=== PATIENT | female | born 1970 | race Caucasian/White ===

== ENCOUNTER 2016-10-23 09:11 | Emergency (ER) | payer OTHER ==
[~2016-10-23] VITALS: Ht 167.6 cm; Wt 79.0 kg
[2016-10-23 10:40] VITALS: BP 123/70
== END 2016-10-23 11:04 | disposition home or self-care (01) ==
LOC: ED 09:11
DX: L03.311 Cellulitis of abdominal wall (principal); Z88.0 Allergy status to penicillin
CPT/HCPCS: J3490

== ENCOUNTER 2016-10-25 07:35 | Inpatient (IN) | payer OTHER ==
[~2016-10-25] VITALS: Ht 167.6 cm; Wt 82.1 kg
[2016-10-25 08:46] LABS: BASOPHIL % 0.3 % (0-2); PLATELET COUNT 386 x10^3mcL (130-400)
[2016-10-25 09:18] LABS: ALKALINE PHOSPHATASE 78 U/L (46-116); ALT/SGPT 25 U/L (14-59); AST/SGOT 19 U/L (15-37); BILIRUBIN TOTAL 0.21 mg/dL (0.20-1.00); CALCIUM 8.5 mg/dL (8.5-10.1); CARBON DIOXIDE 24.1 mmol/L (21-32); CHLORIDE SERUM 101 mmol/L (98-107); CREATININE SERUM 0.9 mg/dL (0.6-1.0); GFR1 > 60 mL/min; GLUCOSE SERUM 143 mg/dL (74-106); POTASSIUM SERUM 3.3 mmol/L (3.5-5.1); SODIUM SERUM 137 mmol/L (136-145); TOTAL PROTEIN, SERUM 8.2 g/dL (6.4-8.2)
[2016-10-25 09:20] LABS: T3 TOTAL 0.72 ng/mL
[2016-10-25 09:40] LABS: ALBUMIN 2.8 g/dL (3.4-5.0)
[2016-10-25 09:41] LABS: CK-MB 2.1 ng/mL (0-3.6); FREE T4 1.42 ng/dL (0.76-1.46); FREE THYROXINE INDEX 2.7 ug/dL (1.4-4.5); T4(THYROXINE) 7.7 ug/dL (4.7-13.3)
[2016-10-25 10:10] LABS: rbc morphology (normal/abnorm) ABNORMAL (NORMAL)
[2016-10-25] MEDS ORDERED: XANAX0.25 MG PO (10:22)
[2016-10-25 10:31] LABS: ERYTHROCYTE SED RATE 56 mm/hr (0-20)
[2016-10-25 10:46] LABS: MAGNESIUM 2.2 mg/dL (1.8-2.4); PHOSPHOROUS 4.9 mg/dL (2.5-4.9)
[2016-10-25 10:48] LABS: CHOLESTEROL/HDL RATIO 2.9
[2016-10-25 11:39] VITALS: BP 99/71
[2016-10-25 14:20] VITALS: BP 104/66
[2016-10-25 16:15] VITALS: BP 112/70
[2016-10-25 19:24] VITALS: BP 97/60
[2016-10-25 21:36] VITALS: BP 111/72
[2016-10-26] VITALS (7 sets, daily range): BP systolic 98–125; BP diastolic 47–71
[2016-10-26 00:14] LABS: microscopic required? NO
[2016-10-26 00:47] LABS: urine erythrocyte NEGATIVE (NEGATIVE)
[2016-10-26 00:56] LABS: AMPHETAMINE QUAL UR POSITIVE (NEG <=1000)
[2016-10-26 07:19] LABS: BASOPHIL % 0.1 % (0-2); PLATELET COUNT 352 x10^3mcL (130-400)
[2016-10-26 07:21] LABS: RED CELL DISTRIBUTION WIDTH 21.7 % (11.5-14.5)
[2016-10-26 07:32] LABS: CALCIUM 8.2 mg/dL (8.5-10.1); CHLORIDE SERUM 109 mmol/L (98-107); CREATININE SERUM 0.7 mg/dL (0.6-1.0); GFR1 > 60 mL/min; GLUCOSE SERUM 202 mg/dL (74-106); POTASSIUM SERUM 3.4 mmol/L (3.5-5.1); SODIUM SERUM 142 mmol/L (136-145)
[2016-10-26 10:38] LABS: rbc morphology (normal/abnorm) ABNORMAL (NORMAL)
[2016-10-26 12:09] LABS: ovalocyte/elliptocyte 1+; tear drop cell (dacryocyte) 1+
[2016-10-27 07:06] VITALS: BP 117/69
[2016-10-27 10:06] VITALS: BP 124/79
[2016-10-27 14:00] VITALS: BP 105/67
[2016-10-27 21:17] VITALS: BP 121/72
[2016-10-28 05:35] VITALS: BP 122/67
[2016-10-28 07:24] LABS: CALCIUM 8.5 mg/dL (8.5-10.1); CHLORIDE SERUM 107 mmol/L (98-107); CREATININE SERUM 0.6 mg/dL (0.6-1.0); GFR1 > 60 mL/min; GLUCOSE SERUM 105 mg/dL (74-106); POTASSIUM SERUM 3.7 mmol/L (3.5-5.1); SODIUM SERUM 142 mmol/L (136-145)
[2016-10-28 07:25] LABS: PLATELET COUNT 299 x10^3mcL (130-400)
[2016-10-28 07:30] LABS: RED CELL DISTRIBUTION WIDTH 21.1 % (11.5-14.5)
[2016-10-28 09:02] LABS: BAND NEUTROPHIL 2 % (0-10); MONOCYTE 5 % (0-7); SEGMENTED NEUTROPHILS 74 % (37-75); rbc morphology (normal/abnorm) ABNORMAL (NORMAL)
[2016-10-28 09:03] LABS: PLATELET MORPHOLOGY PLT CLUMPS SEEN; ovalocyte/elliptocyte 1+
[2016-10-28 10:06] VITALS: BP 117/64
[2016-10-28 17:49] VITALS: BP 119/75
[2016-10-28 20:28] VITALS: BP 129/83
[2016-10-29 05:19] VITALS: BP 100/69
[2016-10-29 07:05] VITALS: BP 121/86
[2016-10-29 07:18] LABS: BASOPHIL % 0.4 % (0-2)
[2016-10-29 07:19] LABS: PLATELET COUNT 499 x10^3mcL (130-400); RED CELL DISTRIBUTION WIDTH 21.4 % (11.5-14.5)
[2016-10-29 07:24] LABS: rbc morphology (normal/abnorm) ABNORMAL (NORMAL)
[2016-10-29 07:25] LABS: ovalocyte/elliptocyte 1+
[2016-10-29 09:26] LABS: CALCIUM 8.5 mg/dL (8.5-10.1); CARBON DIOXIDE 26.4 mmol/L (21-32); CHLORIDE SERUM 103 mmol/L (98-107); CREATININE SERUM 0.7 mg/dL (0.6-1.0); GFR1 > 60 mL/min; GLUCOSE SERUM 102 mg/dL (74-106); POTASSIUM SERUM 3.6 mmol/L (3.5-5.1); SODIUM SERUM 139 mmol/L (136-145)
[2016-10-29 09:35] VITALS: BP 148/89
[2016-10-29 13:40] VITALS: BP 106/63
[2016-10-29 18:24] VITALS: BP 128/69
[2016-10-29 21:45] VITALS: BP 122/75
[2016-10-30 05:27] VITALS: BP 123/86
[2016-10-30 07:41] LABS: BASOPHIL % 0.7 % (0-2)
[2016-10-30 07:52] LABS: PLATELET COUNT 415 x10^3mcL (130-400); RED CELL DISTRIBUTION WIDTH 21.3 % (11.5-14.5)
[2016-10-30 07:54] LABS: ovalocyte/elliptocyte 1+; rbc morphology (normal/abnorm) ABNORMAL (NORMAL)
[2016-10-30 11:14] VITALS: Ht 167.6 cm; Wt 82.1 kg
[2016-10-30 12:50] VITALS: BP 146/89
[2016-10-30] MEDS ORDERED: APAP/HYDROCODON1 T13 PO (14:12)
[2016-10-30] MEDS ORDERED: CLEOCIN HCL150 MG PO ×2 (14:25→16:25)
[2016-10-30] MEDS ORDERED: DOXY 100100 MG IV (14:25)
[2016-10-30] MEDS ORDERED: DOXY 100100 MG PO (14:31)
[2016-10-30] MEDS ORDERED: LAC PO ×2 (15:21→16:25)
[2016-10-30 15:28] VITALS: BP 146/89
[2016-10-30] MEDS ORDERED: DOXYCYCLINE100 M4 PO (16:25)
[2016-10-30] MEDS ORDERED: COLACE100 MG PO (18:19)
== END 2016-10-30 16:30 | disposition home or self-care (01) | DRG 710 ==
LOC: ED 07:35 → DU 09:44 → MU 10-30 08:32
PROVIDERS: Specialist; Surgery; ADMIT Family Medicine
PROC: 0J980ZZ Drainage of Abdomen Subcutaneous Tissue and Fascia, Open Approach (ICD-10-PCS; principal; 2016-10-25 16:30)
PROC: 0WQFXZZ Repair Abdominal Wall, External Approach (ICD-10-PCS; 2016-10-29)
DX: A41.9 Sepsis, unspecified organism (principal); N17.0 Acute kidney failure with tubular necrosis; E43 Unspecified severe protein-calorie malnutrition; F11.20 Opioid dependence, uncomplicated; F15.20 Other stimulant dependence, uncomplicated; L02.211 Cutaneous abscess of abdominal wall; B96.1 Klebsiella pneumoniae [K. pneumoniae] as the cause of diseases classified elsewhere; E86.0 Dehydration; E87.6 Hypokalemia; F41.9 Anxiety disorder, unspecified; R73.03 Prediabetes; E03.9 Hypothyroidism, unspecified; D63.8 Anemia in other chronic diseases classified elsewhere; F17.210 Nicotine dependence, cigarettes, uncomplicated; E66.9 Obesity, unspecified; Z68.29 Body mass index [BMI] 29.0-29.9, adult
CPT/HCPCS: 36600; 82962; 83880; 84439; 90715; 90732; 94150; J0360; J1170; J1200; J1580; J1885; J1956; J2060; J2175; J2250; J2270; J2405; J2543; J2704; J3010; J3490; J7030; J7120; Q0092; Q0162

== ENCOUNTER 2016-11-10 16:11 | Emergency (ER) | payer OTHER ==
[~2016-11-10] VITALS: Ht 167.6 cm; Wt 77.2 kg
[~2016-11-10 16:11] MED LIST: APAP/HYDROCODON1 T13 PO; CLEOCIN HCL150 MG PO; COLACE100 MG PO; DOXY 100100 MG IV; DOXY 100100 MG PO; DOXYCYCLINE100 M4 PO; LAC PO; XANAX0.25 MG PO
[2016-11-10 18:32] VITALS: BP 118/64
== END 2016-11-10 18:32 | disposition home or self-care (01) ==
LOC: ED 16:11
DX: L03.311 Cellulitis of abdominal wall (principal); F13.239 Sedative, hypnotic or anxiolytic dependence with withdrawal, unspecified; Z88.0 Allergy status to penicillin

== ENCOUNTER 2017-05-20 00:58 | Emergency (ER) | payer OTHER ==
[~2017-05-20] VITALS: Ht 167.6 cm; Wt 82.5 kg
[2017-05-20 01:06] VITALS: Ht 167.6 cm; Wt 82.5 kg
[2017-05-20 01:53] VITALS: BP 131/79
== END 2017-05-20 01:53 | disposition home or self-care (01) ==
LOC: ED 00:58
DX: H10.89 Other conjunctivitis (principal); H10.022 Other mucopurulent conjunctivitis, left eye

== ENCOUNTER 2017-10-07 16:19 | Emergency (ER) | payer OTHER ==
[~2017-10-07] VITALS: Ht 167.6 cm; Wt 81.6 kg
[2017-10-07 16:49] VITALS: Ht 167.6 cm; Wt 81.6 kg
[2017-10-07 19:24] VITALS: BP 144/73
== END 2017-10-07 19:30 | disposition home or self-care (01) ==
LOC: ED 16:19
DX: L02.415 Cutaneous abscess of right lower limb (principal); Z88.0 Allergy status to penicillin
CPT/HCPCS: J2001

== ENCOUNTER 2020-01-31 23:26 | Emergency (ER) | payer OTHER ==
[~2020-01-31] VITALS: Ht 167.6 cm; Wt 91.2 kg
[2020-01-31 23:34] VITALS: Ht 167.6 cm; Wt 91.2 kg
[2020-02-01 00:51] VITALS: BP 123/75
== END 2020-02-01 00:51 | disposition home or self-care (01) ==
LOC: ED 23:26
DX: L02.414 Cutaneous abscess of left upper limb (principal)
CPT/HCPCS: 90715; J2001